=== PATIENT | female | born 1990 | race Caucasian/White ===

== ENCOUNTER 2021-10-15 16:48 | Emergency (ER) | payer BC, SELFPAY ==
--- NOTE | 2021-10-15 16:56 | ED.FEMALEGU ---
HPI - Female Genitourinary General Chief complaint: Urogenital-Female Stated complaint: Female Urogenital Time Seen by Provider: 10/15/21 17:28 Source: patient and RN notes reviewed Mode of arrival: ambulatory Limitations: no limitations History of Present Illness HPI Narrative: 31-year-old female presents with concern for exposure to an STD. She reports that a sexual partner recently told her that she was positive for trichomoniasis. The patient reports contact with the sexual partner 1 week ago. She denies any symptoms such as dysuria, urgency, abdominal pain, vaginal discharge. MD elicited complaint: possible STD Related Data Allergies Allergy/AdvReac Type Severity Reaction Status Date / Time levocetirizine Allergy Unknown Unknown Verified 10/15/21 17:24 Sulfa (Sulfonamide Allergy Unknown Unknown Verified 10/15/21 17:24 Antibiotics) sulfanilamide Allergy Unknown Unknown Verified 10/15/21 17:24 Review of Systems Review of Systems: CONSTITUTIONAL: Denies malaise, chills, sweats, or fever. CARDIOVASCULAR: Denies chest pain, palpitations, or edema. RESPIRATORY: Denies cough or dyspnea. GASTROINTESTINAL: Denies abdominal pain, nausea, vomiting, diarrhea GENITOURINARY: Denies dysuria, frequency, urgency, suprapubic pressure. Denies flank pain or hematuria. SKIN: Denies rash or itching. MUSCULOSKELETAL: Denies back pain or myalgia. All systems reviewed & are unremarkable except as noted in HPI and below PMFSH Past Medical History Medical History BMI 29.0-29.9,adult BMI 31.0-31.9,adult BMI 32.0-32.9,adult Tobacco abuse Family History Family History Mother Hypertension Grandparent Cerebrovascular accident Father Family history of diabetes mellitus in first degree relative Hypertension Other Diabetes mellitus Social History Social History Smoking status: Current every day smoker Tobacco type: cigarettes Second hand tobacco smoke exposure: No Alcohol intake: current Substance use: current Substance use type: marijuana Additional occupation/education comments: [employer] Gender identity (if verbalized by the patient): Female Comments At time of signature, agree with nursing past medical, surgical, social and family history. There is no relevant family history pertinent to the presenting complaint Exam Narrative: GENERAL: Well-appearing, well-nourished, and in no acute distress. HEAD: Normocephalic. EYES: PERRLA, conjunctivae clear. NECK: Supple. No lymphadenopathy CHEST: Clear to auscultation. No respiratory distress. HEART: Regular rate and rhythm. SKIN: Warm, dry, no rash. NEURO: Alert and oriented x3. PSYCH: Normal mood and affect Course Course Emergency Course: Discussed treatments options with patient, patient prefers to be treated for only trichomoniasis at this time. He understands he may have to return for an intramuscular injection. Patient is aware of diagnosis, understands and agrees to treatment plan. Anticipatory guidance given. Patient agrees to follow-up as directed and is aware of reasons to seek care at the emergency department. Portions of this record may have been created with voice recognition software Level of Care: Express Care Visit Vital Signs Vital signs: Reviewed. MDM - Female Genitourinary MDM Narrative Medical decision making narrative: Exam findings and UA show no acute concerns or changes; patient is non-toxic appearing and is in no distress. Patient is appropriate for outpatient treatment and follow-up. Differential Diagnosis Differential diagnosis: Likely urinary tract infection and cystitis Critical Care Time Critical Care Time Critical Care Time: No Discharge Plan Discharge Clinical Impression: Possible exposure to STD Patient Disposition: Home, Self-
[2021-10-15 17:03] VITALS: BP 149/90; PULSE 97; RESP 18; TEMP 36.6; O2SAT 100
== END 2021-10-15 17:50 | disposition home or self-care (01) ==
PROVIDERS: Emergency Provider Nurse Practitioner; PCP Family Medicine
DX: Z20.2 Contact with and (suspected) exposure to infections with a predominantly sexual mode of transmission (principal); F17.210 Nicotine dependence, cigarettes, uncomplicated
CPT/HCPCS: 87491; 87591; 87661; 99213; G0463

== ENCOUNTER 2021-10-19 17:35 | Emergency (ER) | payer BC, SELFPAY ==
[2021-10-19 17:46] VITALS: BP 131/78; PULSE 113; RESP 18; TEMP 38; O2SAT 100
--- NOTE | 2021-10-19 18:28 | ED.GENADULT ---
HPI - General Adult General Chief complaint: Urogenital-Female Stated complaint: vaginal pain and discharge History of Present Illness HPI narrative: 31 y/o female. PMHx MDD, Chlamydia/Venereal Disease. Presents to [facility] today with acute complaints of pelvic pain, vaginal pain, vaginal discharge, fever, dysuria, suprapubic pain, & N/V for the past 24 hours. . Manifestation onset in the setting of positive Trichomonas exposure 1 week ago. Client tells me that she had been involved in a 3-way sexual encounter with her and another partner 1 week [employer]. She tells me that since the encounter she was notified of the outside partner testing positive for Trichomonas. She had been previously seen here at [facility] on 10/15/2021 for uncomplicated vaginal discharge, her urine was sent for GC/Chlamydia & Trichomonas analysis, and the final send-out reports are still pending. She was treated w/OP Flagyl regimen following last visit, and does report compliance. However, now with worsening pelvic pain, fever, N/V, and what she describes as 'copious yellow' vaginal discharge. She is concerned for worsening infection. Related Data Allergies Allergy/AdvReac Type Severity Reaction Status Date / Time levocetirizine Allergy Unknown Unknown Verified 10/19/21 18:00 Sulfa (Sulfonamide Allergy Unknown Unknown Verified 10/19/21 18:00 Antibiotics) sulfanilamide Allergy Unknown Unknown Verified 10/19/21 18:00 Review of Systems Review of Systems: CONSTITUTIONAL: + fever, chills. STD Exposure. GASTROINTESTINAL: +nausea, vomiting. GENITOURINARY: + dysuria, pelvic pain, suprapubic pain, abnormal discharge. REMAINDER OF ROS: NEGATIVE. [facility] Past Medical History Medical History (Updated 10/19/21 @ 18:40 by CHAITANYA Lea) BMI 29.0-29.9,adult BMI 31.0-31.9,adult BMI 32.0-32.9,adult Tobacco abuse Family History Family History (System 10/16/21 @ 10:14 by Bunny Castanon) Mother Hypertension Grandparent Cerebrovascular accident Father Family history of diabetes mellitus in first degree relative Hypertension Other Diabetes mellitus Social History Social History (System 10/16/21 @ 10:14 by Bunny Castanon) Smoking status: Current every day smoker Tobacco type: cigarettes Second hand tobacco smoke exposure: No Alcohol intake: current Substance use: current Substance use type: marijuana Additional occupation/education comments: [employer] Gender identity (if verbalized by the patient): Female Exam Narrative: GENERAL: well-developed adult, appears ill, no distress. EYES: Sclera clear/white. EARS: External ears normal NOSE: External nose normal. THROAT: Mucous membranes moist. NECK: Neck supple, non-tender. CARDIOVASCULAR: Tachycardic, RRR. RESPIRATORY: Clear to auscultation. GASTROINTESTINAL: Abdomen soft, nondistended. With point tenderness suprapubic, guarding. SKIN: No rash. NEURO: Alert, No focal neurologic deficits. Course Course Level of Care: Express Care Visit Vital Signs Vital signs: Vital Signs Temperature 38.0 C H 10/19/21 17:46 Pulse Rate 113 H 10/19/21 17:46 Respiratory Rate 18 10/19/21 17:46 Blood Pressure 131/78 10/19/21 17:46 Pulse Oximetry 100 10/19/21 17:46 Oxygen Delivery Room Air 10/19/21 17:46 Temperature 38.0 C H 10/19/21 17:46 Pulse Rate 113 H 10/19/21 17:46 Respiratory Rate 18 10/19/21 17:46 Blood Pressure 131/78 10/19/21 17:46 Pulse Oximetry 100 10/19/21 17:46 Oxygen Delivery Room Air 10/19/21 17:46 Transfer Transfer rationale: Pelvic pain, discharge, N/V, Fever, STI/Trichomonas exposure, need for additional medical evaluation @ Tertiary care. Accepting physician: Britni/MD Logan LI. Medical Decision Making MDM Narrative Medical decision making narrative: -Increased pelvic discharge, pelvic pain, N/V, in the setting of recent STI/Trichomonas exposure
== END 2021-10-19 18:44 | disposition short-term general hospital (02) ==
PROVIDERS: Emergency Provider Nurse Practitioner Adult Health; PCP Family Medicine
DX: R50.9 Fever, unspecified (principal); R10.2 Pelvic and perineal pain; N89.8 Other specified noninflammatory disorders of vagina; Z20.2 Contact with and (suspected) exposure to infections with a predominantly sexual mode of transmission; F17.210 Nicotine dependence, cigarettes, uncomplicated
CPT/HCPCS: 81003; 99213; G0463

== ENCOUNTER 2021-10-19 18:58 | Emergency (ER) | payer BC, SELFPAY ==
[2021-10-19 19:02] VITALS: BP 141/84; PULSE 113; RESP 16; TEMP 36.4; O2SAT 100
[2021-10-19 19:28] LABS: Basophils Percent Auto 0.3 % (0.2-1.2); Eosinophils Percent Auto 0.2 % (0-4.4); Hematocrit 43.9 % (37.0-47.0); Hemoglobin 14.2 g/dL (12.0-15.0); Immature Granulocyte Absolute 0.05 K/mm3 (0.00-0.031); Immature Granulocyte Percent A 0.8 % (0-0.5); Mean Corpuscular HGB Conc 32.3 g/dl (32-36); Mean Corpuscular Hemoglobin 30.9 pg (26-34); Mean Corpuscular Volume 95.4 fl (80-100); Mean Platelet Volume 10.4 fl (7.4-10.4); Monocytes Absolute Auto 0.6 K/mm3 (0.1-0.6); Monocytes Percent Auto 8.6 % (2.6-8.5); Neutrophils Absolute Auto 5.4 K/mm3 (1.3-6.7); Neutrophils Percent Auto 81.1 % (45.5-73.1); Platelet Count Result 205 k/mm3 (150-375); Red Cell Distribution Width 13.3 % (11.5-14.5); White Blood Count 6.6 K/mm3 (4.5-10.0)
[2021-10-19 19:37] LABS: Alanine Aminotransferase 35 U/L (6-35); Albumin Level 4.2 g/dL (3.5-5.1); Alkaline Phosphatase 64 U/L (38-126); Anion Gap 12 mmol/L (8-16); Aspartate Amino Transferase 58 U/L (14-36); Bilirubin,Total 0.3 mg/dL (0.2-1.3); Blood Urea Nitrogen 8 mg/dL (7-17); Calcium 8.6 mg/dL (8.4-10.2); Carbon Dioxide 23 mmol/L (22-30); Chloride 101 mmol/L (98-107); Estimated CRCL calculation 85 ml/min; Estimated Glomerular Filt Rate > 60; Glucose 103 mg/dL (65-110); Lipase 98 U/L (23-300); Potassium 3.8 mmol/L (3.4-5.0); Sodium 136 mmol/L (137-145)
[2021-10-19 21:59] LABS: Add Urine Microscopic? YES; Appearance Urine Turbid (Clear); Bilirubin Urine 2+ (Negative); Blood Urine 2+ (Negative); Glucose Urine UA Negative (Negative); Ketones Urine 2+ mg/dL (Negative); Leukocyte Esterase Ur Negative LEU/UL (Negative); Nitrate Urine Negative (Negative); Protein Urine 2+ mg/dL (Negative); Specific Grav Ur >= 1.030 (1.001-1.035)
[2021-10-19 22:01] LABS: Color Urine Dark Yellow (Yellow)
[2021-10-19 22:06] LABS: Mucus Urine Heavy /lpf; RBC Urine >75 /hpf (0-2); Squamous Epithelial Cell Urine Many /hpf (Few)
[2021-10-19 22:07] VITALS: BP 120/86; PULSE 94; RESP 20; O2SAT 100
--- NOTE | 2021-10-19 22:43 | ED.ABDPAIN ---
HPI - Abdominal Pain General Chief Complaint: Abdominal Pain Stated Complaint: fever, vaginal discharge, STI exposure Time Seen by Provider: 10/19/21 22:11 Source: patient and old records reviewed Mode of arrival: ambulatory Limitations: no limitations History of Present Illness HPI narrative: Patient is a 31 y/o female who presents to the ED with c/o vaginal discharge. Per patient's records, she was recently exposed to a sexual partner who tested positive for trichomonas. She was seen in the urgent care on 10/15 and tested for gonorrhea, chlamydia, trichomonas. No results yet. She was treated empirically for Trich with Flagyl 2000 mg x4 days. Patient reports she did not have any symptoms initially, but developed vaginal discharge, lower abdominal pain, fever, nausea, vomiting yesterday. She returned to the urgent care today and was referred to the ED for further evaluation of possible PID. Patient currently denying any abdominal pain. No diarrhea, constipation, rectal bleeding, vaginal bleeding, dysuria, hematuria. Related Data Allergies Allergy/AdvReac Type Severity Reaction Status Date / Time levocetirizine Allergy Unknown Unknown Verified 10/19/21 18:00 Sulfa (Sulfonamide Allergy Unknown Unknown Verified 10/19/21 18:00 Antibiotics) sulfanilamide Allergy Unknown Unknown Verified 10/19/21 18:00 Review of Systems Review of Systems: CONSTITUTIONAL: Reports fever. CARDIOVASCULAR: Denies chest pain. RESPIRATORY: Denies dyspnea. GASTROINTESTINAL: Reports lower abdominal pain, nausea, vomiting. Denies constipation, rectal bleeding, diarrhea. GENITOURINARY: Reports vaginal discharge. Denies vaginal bleeding, dysuria or hematuria. SKIN: Denies rash or itching. MUSCULOSKELETAL: Denies back pain, joint pain, or myalgia. All systems reviewed & are unremarkable except as noted in HPI and below PMFSH Past Medical History Medical History BMI 29.0-29.9,adult BMI 31.0-31.9,adult BMI 32.0-32.9,adult Depression Tobacco abuse Surgical History Surgical History No pertinent past surgical history Family History Family History (System 10/16/21 @ 10:14 by Bunny Castanon) Mother Hypertension Grandparent Cerebrovascular accident Father Family history of diabetes mellitus in first degree relative Hypertension Other Diabetes mellitus Social History Social History Smoking status: Current every day smoker Tobacco type: cigarettes Second hand tobacco smoke exposure: No Alcohol intake: current Substance use: current Substance use type: marijuana Additional occupation/education comments: [employer] Gender identity (if verbalized by the patient): Female Exam Narrative: GENERAL: Well appearing, well-nourished, non-toxic, in no acute distress. HEAD: Normocephalic, atraumatic. NECK: Supple. No adenopathy, no masses. RESPIRATORY: Airway patent, respirations nonlabored. Clear to auscultation bilaterally, no rales, rhonchi, wheezing. CARDIOVASCULAR: Regular rate and rhythm without murmurs, rubs, or gallops. Peripheral pulses 2+ and equal bilaterally. ABDOMINAL: Soft, no tenderness to palpation throughout abdomen, nondistended, no hepatosplenomegaly. Normoactive BS. PELVIC: Normal external genitalia. No genital lesions. Mild amount of green/sexton watery discharge coming from cervical os. No significant odor. No significant cervical motion tenderness or pain with pelvic exam. No blood. MUSCULOSKELETAL: Moves all extremities. Strength/ROM intact without gross deformities. SKIN: Warm, dry, normal color. No rashes. NEURO: A&O X3. Speech clear. Cranial nerves II-XII grossly intact. Steady gait. No ataxic movements. PSYCHIATRIC: Appropriate mood and affect. Normal interaction. Course Vital Signs Vital signs: Vital Signs T
[2021-10-19] MEDS: SODIUM CHLORIDE 0.9% IV 1,000 ML 999 ML IV CONT (22:54)
[2021-10-19 23:53] LABS: Lactic Acid Reflex 0.7 mmol/L (0.7-2.0)
[2021-10-20] MEDS: cefTRIAXone 1 GM VIAL 0.5 GM IM (00:20)
[2021-10-20] MEDS: DOXYCYCLINE HYCLATE 100 MG TABLET PO (00:20)
== END 2021-10-20 00:40 | disposition home or self-care (01) ==
PROVIDERS: Emergency Medicine; Physician Assistant; Emergency Provider Emergency Medicine; PCP Family Medicine
DX: N89.8 Other specified noninflammatory disorders of vagina (principal); Z20.2 Contact with and (suspected) exposure to infections with a predominantly sexual mode of transmission; F17.210 Nicotine dependence, cigarettes, uncomplicated; F32.9 Major depressive disorder, single episode, unspecified
CPT/HCPCS: 36415; 80053; 81001; 81025; 83605; 83690; 85025; 87070; 87086; 87088; 87147; 87491; 87591; 87808; 96365; 96372; 99284; A9270; J0131; J0696; J7030

== ENCOUNTER → 2023-02-28 07:38 | Outpatient (CLI) | payer OTHER, SELFPAY ==
--- NOTE | ~2023-02-28 | US_ITS ---
EXAMINATION: US pelvic complete DATE: 02/28/2023 08:09 INDICATION: Abnormal uterine bleeding. Painful intercourse. Comparison:No prior studies for comparison. TECHNIQUE: Multiple transabdominal and endovaginal sonographic images of the pelvis performed. FINDINGS: The uterus measures 8 x 3 x 4.1 cm. There is an IUD present in the endometrium. The endomet rial complex measures 3 mm. The right ovary measures 3.3 x 2.1 x 2.3 cm and the left ovary measures 1.9 x 1.3 x 1.1 cm. There ar e small follicles in each ovary. Normal doppler signal in both ovaries. There is no free fluid in the pelvis. There are no abnormal masses seen on either side. IMPRESSION: 1. Unremarkable pelvic ultrasound. Reviewed, dictated and finalized at location B. DER
== END ==
PROVIDERS: PCP Obstetrics & Gynecology Gynecology; Visit Provider Obstetrics & Gynecology Gynecology
DX: N93.8 Other specified abnormal uterine and vaginal bleeding (principal)
CPT/HCPCS: 76856

== ENCOUNTER 2023-07-18 13:42 | Outpatient (CLI) | payer OTHER, SELFPAY ==
--- NOTE | ~2023-07-18 | US_ITS ---
EXAMINATION: US pelvic complete w TV DATE: 07/18/2023 14:23 INDICATION: Missing IUD Comparison:No prior studies for comparison. TECHNIQUE: Multiple transabdominal and endovaginal sonographic images of the pelvis performed. FINDINGS: The uterus measures 8.6 x 3.6 x 4.6 cm. There is an IUD in the endometrium. The endometrial complex measures 1 cm. The right ovary measures 3 x 1.6 x 1.7 cm and the left ovary measures 2.6 x 1.8 x 2.2 cm. There are small follicles in each ovary. Normal doppler signal in both ovaries. There is no free fluid in the pelvis. There are no abnormal masses seen on either side. IMPRESSION: 1. Unremarkable pelvic ultrasound. Reviewed, dictated and finalized at location B.
== END 2023-07-18 13:43 ==
LOC: MICIMG 13:42
PROVIDERS: PCP Obstetrics & Gynecology Gynecology; Visit Provider Nurse Practitioner
DX: T83.32XA Displacement of intrauterine contraceptive device, initial encounter (principal)
CPT/HCPCS: 76830; 76856